=== PATIENT | male | born 1975 | race Caucasian/White ===

== ENCOUNTER 2018-06-20 19:37 | Emergency (ER) | payer SELFPAY ==
--- NOTE | 2018-06-20 19:50 | PDOC ---
Rapid Medical Evaluation Time Seen by Provider: 06/20/18 19:48 Medical Evaluation: 06/20/18 19:48 I have performed a brief in-person evaluation of this patient. The patient presents with a chief complaint of: Left occipital abscess X 1wk Pertinent physical exam findings: 3cm indurated area noted in left occipital region I have ordered the following:none The patient will proceed to the ED for further evaluation. Discharge Disposition - Diagnosis Abscess - Referrals - Patient Instructions - Post Discharge Activity
[2018-06-20 19:52] VITALS: BP 143/90; PULSE 72; TEMP 98.5; BMI 35.4
--- NOTE | 2018-06-20 20:18 | PDOC ---
History of Present Illness - General Chief Complaint: Abscess Boil Stated Complaint: Head INJURY Time Seen by Provider: 06/20/18 19:48 - History of Present Illness Initial Comments: 23-year-old male without comorbidities presents for a painful area on his left occipital scalp times one week. He has done nothing to treat the area. He has no other associated symptoms. He takes no home medications 06/20/18 20:14 Past History - Past Medical History Allergies/Adverse Reactions: Allergies Allergy/AdvReac Type Severity Reaction Status Date / Time No Known Allergies Allergy Verified 06/20/18 19:48 Home Medications: Ambulatory Orders Cephalexin [Keflex] 500 mg PO QID #40 capsule 06/20/18 Sulfamethoxazole/Trimethoprim [Bactrim Ds -] 1 tab PO BID #14 tablet 06/20/18 COPD: No DVT: No Dementia: No - Immunization History Immunization Up to Date: Yes - Suicide/Smoking/Psychosocial Hx Smoking History: Never smoked Information on smoking cessation initiated: No Hx Alcohol Use: No Drug/Substance Use Hx: No Substance Use Type: None Review of Systems - Review of Systems Integumentary: Yes: See HPI, Lesions All Other Systems: Reviewed and Negative *Physical Exam - Vital Signs Last Vital Signs Temp Pulse Resp BP Pulse Ox 98.5 F 72 16 143/90 98 06/20/18 19:49 06/20/18 19:49 06/20/18 19:49 06/20/18 19:49 06/20/18 19:49 - Physical Exam Comments: There is approximately a 3 cm circumferential indurated erythematous warm nonfluctuant mass on the left occipital scalp with purulent drainage from the center in the form of a pustule the area is sensitive and tender. There is no cervical adenopathy or meningismus. 06/20/18 20:15 Medical Decision Making - Medical Decision Making This is an abscess on the left occipital scalp. I have discussed this case with our emergency room attending she has also evaluated the patient. We feel this patient is best served sent home on by mouth antibiotics warm compresses and follow-up with Gen. surgery. 06/20/18 20:15 *DC/Admit/Observation/Transfer Diagnosis at time of Disposition: Abscess - Discharge Dispostion Disposition: HOME Condition at time of disposition: Stable Decision to Admit order: No - Referrals Referrals: Xiao Rosas MD [Staff Physician] - - Patient Instructions Additional Instructions: Apply warm compresses 6-7 times a day in the tender area on her scalp. Take the antibiotics as directed. Follow-up with general surgery in one day for further evaluation and treatment options. This is an abscess that may require drainage and is best done by a general surgeon. Today in the emergency room it does not appear anything to be drained from your wound. Again very important to follow- up with general surgery tomorrow. Return to the emergency room should you have any worsening symptoms. - Post Discharge Activity
== END 2018-06-20 20:36 | disposition home or self-care (01) ==
LOC: JERFT 19:37
DX: L02.811 Cutaneous abscess of head [any part, except face] (principal)
CPT/HCPCS: 99281-25